=== PATIENT | male | born 1935 | race Caucasian/White ===

== ENCOUNTER 2017-06-07 08:58 | Outpatient (CLI) | payer MEDICARE ==
[2017-06-07] MEDS ORDERED: Iopamidol 370 76% 100 ML VIAL ONE (11:10)
--- NOTE | 2017-06-07 12:30 | CT ---
CT ABDOMEN AND PELVIS PERFORMED WITH CONTRAST ENHANCEMENT: HISTORY: Followup of prostate cancer. The patient has a history of bone metastases, not currently on chemothe rapy or radiation. COMPARISON: CT study from 09/09/2016 and bone scan from 09/09/2016. FINDINGS: ABDOMEN: The lung bases are clear. The liver, spleen, pancreas, and gallbladder regions all appear unremarkable. The right and left adrenal glands are normal in size and appearance. The right and left kidneys are normal in appearance. There is no significant periaortic or mesenteric adenopathy. PELVIS: There is no significant pelvic lymphadenopathy noted. The prostate is slightly enlarged, st able as compared to the prior exam. The small, subcentimeter, pelvic nodes noted on the previous exa mination appear essentially stable. The largest of these is one within the right internal iliac dominic n, measuring approximately 5 to 6 mm in short axis dimension. Extensive sclerotic bone metastases are stable. IMPRESSION: Stable overall examination. No significant periaortic or pelvic adenopathy. The small pelvic nodes and para-aortic nodes noted on the prior examination are unchanged in size. The bony changes are als o stable. POS: [facility]
--- NOTE | 2017-06-07 14:48 | NM ---
WHOLE BODY BONE SCAN: Date: 06/07/17 HISTORY: Prostate cancer with osseous metastasis. RADIOPHARMACEUTICAL: 31 mCi technetium-99m MDP injected intravenously. COMPARISON: 09/09/16. FINDINGS: Numerous foci of increased uptake are again seen in the skeleton. Some of these are new since the las t exam. Foci of increased uptake in the skull, left mandible, rib cage, spine, pelvis, bilateral cristobal ri and femurs. A small amount of tracer is seen in the urinary bladder. The kidneys are faintly visua lized. Increased uptake in the wrists and feet are consistent with degenerative changes. IMPRESSION: Widespread osseous metastatic disease with mild interval worsening since 09/09/16. POS: [facility]ASS[facility]
== END 2017-06-07 08:59 | disposition home or self-care (01) ==
LOC: CT 08:58
PROVIDERS: ATTEND Internal Medicine Medical Oncology
DX: C61 Malignant neoplasm of prostate (principal); C79.51 Secondary malignant neoplasm of bone; R11.2 Nausea with vomiting, unspecified
CPT/HCPCS: 74177; 78306; 82565; A9503; 36415

== ENCOUNTER 2017-09-08 12:44 | Outpatient (CLI) | payer MEDICARE | END 2017-09-08 12:45 | disposition home or self-care (01) | LOC: BICRAD 12:44 | PROVIDERS: ATTEND Internal Medicine Medical Oncology | DX: C61 Malignant neoplasm of prostate (principal); C79.51 Secondary malignant neoplasm of bone; R11.2 Nausea with vomiting, unspecified | CPT/HCPCS: 71046 ==

== ENCOUNTER 2017-09-23 07:24 | Outpatient (CLI) | payer MEDICARE ==
[2017-09-23] MEDS ORDERED: Iopamidol 370 76% 100 ML VIAL ONE (11:39)
--- NOTE | 2017-09-23 11:43 | CT ---
CT OF ABDOMEN AND PELVIS PERFORMED WITH INTRAVENOUS CONTRAST ENHANCEMENT: HISTORY: Prostate cancer with bone metastases. Evaluation for soft tissue metastasis. COMPARISON: A 06/07/17 study. FINDINGS: CT OF ABDOMEN PERFORMED WITH INTRAVENOUS CONTRAST ENHANCEMENT: The lung bases are clear. The liver, spleen, pancreas, and gallbladder regions are unremarkable. Right and left adrenal glands are normal in size. A lower pole left renal cyst is stable as is a aramis y subtle mid pole left renal cyst. There is no significant periaortic or mesenteric lymphadenopathy. CT OF PELVIS PERFORMED WITH INTRAVENOUS CONTRAST ENHANCEMENT: The small subcentimeter right-sided pelvic nodes are difficult to even appreciate on today's study. The 5-6 mm nodes seen along the right internal iliac chain is the largest node present. It is stable in size as compared to the prior examination measuring 6 mm in short axis dimension. OSSEOUS STRUCTURES: Diffuse sclerotic bone metastases are again noted. IMPRESSION: 1. Stable overall examination. 2. Stable appearance of small subcentimeter right-sided pelvic lymph nodes. 3. Diffuse sclerotic bone metastases unchanged. POS: [facility]
--- NOTE | 2017-09-23 12:47 | NM ---
BONE SCAN: HISTORY: Prostate cancer with bone metastases. COMPARISON: 06/07/2017 TECHNIQUE: Examination is performed using 21 millicuries of 99m technetium MDP, administered intravenously. FINDINGS: Whole body images, once again, show diffuse skeletal metastases. In comparison to the prior examinat ion, I do not appreciate that there is a significant interval change. Changes involve both the axial as well as the appendicular skeleton. The only area of questionable slight increase is in the dista l femoral shafts. IMPRESSION: Fairly stable overall examination. Diffuse skeletal metastatic disease again noted. The only area o f some questionable increased or new lesions is in the right and left distal femoral shafts, where up take is slightly more prominent than on the prior study. POS: [facility]
== END 2017-09-23 07:25 | disposition home or self-care (01) ==
LOC: NM 07:24
PROVIDERS: ATTEND Internal Medicine Medical Oncology
DX: C61 Malignant neoplasm of prostate (principal); C79.51 Secondary malignant neoplasm of bone
CPT/HCPCS: 74177; 78306; 82565; A9503

== ENCOUNTER 2018-06-07 08:52 | Outpatient (CLI) | payer MEDICARE ==
[2018-06-07] MEDS ORDERED: Iopamidol 370 76% 100 ML VIAL ONE (09:28)
--- NOTE | 2018-06-07 10:47 | CT ---
CT ABDOMEN AND PELVIS WITH CONTRAST: HISTORY: Prostate cancer with bone and lymph node metastasis. COMPARISON: CT abdomen and pelvis from 09/23/2017. FINDINGS: The lung bases are clear. No pericardial effusion. The gallbladder is unremarkable. The liver is unremarkable. The spleen is unremarkable. The adrena l glands are unremarkable. Inferior pole exophytic anterior cyst, left kidney, is unchanged. No hydronephrosis. No abnormal re nal enhancing mass. The aorta is nonaneurysmal. Extensive phleboliths in the pelvis. Mild diverticular disease in the s igmoid colon without active current inflammation. The appendix is visualized and is normal. Mild fluid signal within the fat in the deep pelvis, which could be sequela of post radiation changes. Unchanged size of the right internal iliac lymph nodes, which are not enlarged by size criteria, nor are they round, and they retain their normal reniform shape. Mild enthesopathic changes of both iliopsoas tendon insertions. Diffuse osseous sclerotic metastatic disease. No pathologic fracture. IMPRESSION: 1. Unchanged osseous metastatic disease. 2. No evidence for glenn disease progression within the abdomen or pelvis. 3. No acute intraabdominal abnormality. POS: [facility]
--- NOTE | 2018-06-07 14:46 | NM ---
NUCLEAR MEDICINE WHOLE BODY BONE SCAN: Comparison: 09-23-17 Clinical history: Malignant neoplasm of prostate with history of secondary malignant neoplasm of bone . Pharmaceutical: 32.8 mCi Technetium 99M MDP IV. FINDINGS: There is the appearance of a superscan with diffuse increased uptake throughout the skeletal structur es and nonvisualization of excreted activity within the kidneys. Diffuse increased activity is seen i nvolving the axial and appendicular skeleton as well as the calvarium. IMPRESSION: Superscan is demonstrated, compatible with widespread osseous metastatic disease. POS: [facility]ASSIMO
== END 2018-06-07 08:53 | disposition home or self-care (01) ==
LOC: CT 08:52
PROVIDERS: ATTEND Internal Medicine Medical Oncology
DX: C61 Malignant neoplasm of prostate (principal); C79.51 Secondary malignant neoplasm of bone; C77.9 Secondary and unspecified malignant neoplasm of lymph node, unspecified
CPT/HCPCS: 74177; 78306; 82565; A9503; 80053; 82248; 83615; 84100; 84153; 84550; Q9967

== ENCOUNTER 2018-12-13 12:37 | Outpatient (CLI) | payer MEDICARE ==
--- NOTE | 2018-12-13 12:58 | RAD ---
AP view of the pelvis INDICATION: History of prostate cancer COMPARISON: November 09, 2016 from prior radiology associates FINDINGS: Bones: Diffuse osseous metastatic disease appears stable. Vasectomy clips are seen within the region of the scrotum. Hips: Mild degenerative changes are stable. There is stable heterotopic ossification adjacent to the left hip. SI joints and symphysis pubis: Normal appearing. Intrapelvic contents: There are scattered phleboliths within the lower pelvis. IMPRESSION: Stable diffuse osseous metastatic disease.
== END 2018-12-13 12:38 | disposition home or self-care (01) ==
LOC: BICRAD 12:37
PROVIDERS: ATTEND Internal Medicine Medical Oncology
DX: C61 Malignant neoplasm of prostate (principal); C79.51 Secondary malignant neoplasm of bone; M25.552 Pain in left hip
CPT/HCPCS: 72170

== ENCOUNTER 2019-10-05 10:12 | Day surgery (SDC) | payer MEDICARE ==
[2019-10-05] MEDS ORDERED: diphenhydrAMINE 25 MG CAP PO SCH (10:30)
[2019-10-05] MEDS ORDERED: Acetaminophen 500 MG TAB PO SCH (10:30)
[2019-10-05] MEDS ORDERED: Sodium Chloride 0.9% 20 ML ONE (11:29)
[2019-10-05 16:14] VITALS: BP 152/65; TEMP 97.4
== END 2019-10-05 16:25 | disposition home or self-care (01) ==
LOC: ONC/OP 10:12
PROVIDERS: ATTEND Internal Medicine Medical Oncology
PROC: 30233N1 Transfusion of Nonautologous Red Blood Cells into Peripheral Vein, Percutaneous Approach (ICD-10-PCS; principal; 2019-10-05)
DX: D64.9 Anemia, unspecified (principal); C61 Malignant neoplasm of prostate
CPT/HCPCS: 36430; 86850; 86900; 86901; P9016; Q0163

== ENCOUNTER 2020-05-31 12:17 | Emergency (ER) | payer MEDICARE ==
[2020-05-31 15:14] LABS: Hemoglobin 6.6 g/dL (14.0-18.0); Mean Corpuscular HGB CONC 32.8 g/dL (32.0-36.0); Mean Corpuscular Hemoglobin 27.7 pg (27.0-31.0); Mean Corpuscular Volume 84.6 fL (78.0-98.0); Platelet Count 41 thou/uL (130-400); RBC Distribution Width 18.8 % (11.5-14.5); Red Blood Cell (RBC) Count 2.37 mill/uL (4.70-6.10)
[2020-05-31 15:20] LABS: INR-International Normal Ratio 1.3; PTT 26.4 sec (22.9-36.1); Prothrombin Time 16.7 sec (12.0-14.7)
[2020-05-31 15:24] LABS: Anisocytosis SLIGHT = 6-15 cells (100X) (0-5/hpf); Band 12 % (5-11); Lymphocytes 18 % (21-51); MDiff Complete? YES; Metamyelocyte 3 % (0-0); Monocytes 11 % (0-10); Myelocyte 1 % (0-0); Neutrophil 55 % (42-75); Nucleated RBC 8 % (0); Ovalocytes SLIGHT = 2-5 cells (100X) (0-1/hpf); Platelet Morphology Comment Appears Decreased; Polychromasia MODERATE = 3-4 cells (100X) (0-2/hpf); Schistocytes SLIGHT = 2-5 cells (100X) (0-1/hpf); Toxic Granulation SLIGHT; White Blood Cell (WBC) Count 9.1 thou/uL (4.8-10.8)
[2020-05-31 15:38] LABS: ALT (SGPT) 15 U/L (8-55); AST (SGOT) 63 U/L (5-34); Alkaline Phosphatase 1495 U/L (40-110); Anion Gap 17 mmol/L (10-20); BUN (Urea Nitrogen) 42 mg/dL (8.4-25.7); Bilirubin, Total 1.8 mg/dL (0.2-1.2); Calc. Creatinine Clearance 0 mL/min (70-130); Carbon Dioxide 18 mmol/L (23-31); Chloride 106 mmol/L (98-107); Globulin 1.7 g/dL (2.4-3.5); Glucose 127 mg/dL (83-110); Potassium 4.5 mmol/L (3.5-5.1); Protein, Total 5.7 g/dL (5.8-8.1); Sodium 136 mmol/L (136-145)
== END 2020-05-31 22:19 | disposition home or self-care (01) ==
LOC: ERS 12:17
DX: D64.9 Anemia, unspecified (principal); R06.00 Dyspnea, unspecified
CPT/HCPCS: 36430; 80053; 85025; 85610; 85730; 86850; 86900; 86901; 86920; 99285; P9016

== ENCOUNTER 2020-06-21 16:38 | Day surgery (SDC) | payer MEDICARE ==
[2020-06-21] MEDS ORDERED: diphenhydrAMINE 25 MG CAP PO SCH (17:30)
[2020-06-21] MEDS ORDERED: Acetaminophen 500 MG TAB PO SCH (17:30)
[2020-06-22 01:12] VITALS: BP 124/58; TEMP 98
[2020-06-22 02:20] LABS: #Eosinphils 0.1 thou/uL (0.0-0.7); #Monocytes 0.4 thou/uL (0.11-0.59); #Neutrophils 5.2 thou/uL (1.40-6.50); %Basophils 0.2 % (0.0-1.0); %Eosinophils 1.9 % (0.0-10.0); %Lymphocytes 14.9 % (21.0-51.0); %Neutrophils 77.1 % (42.0-75.0); Anisocytosis MODERATE=16-30 cells (100X) (0-5/hpf); Hemoglobin 9.1 g/dL (14.0-18.0); MDiff Complete? YES; Mean Corpuscular HGB CONC 34.3 g/dL (32.0-36.0); Mean Corpuscular Hemoglobin 32.6 pg (27.0-31.0); Mean Corpuscular Volume 95.1 fL (78.0-98.0); Mean Platelet Volume 8.6 fL (7.4-10.4); Platelet Count 46 thou/uL (130-400); Polychromasia SLIGHT = 2-3 cells (100X) (0-2/hpf); RBC Distribution Width 22.4 % (11.5-14.5); Red Blood Cell (RBC) Count 2.79 mill/uL (4.70-6.10); White Blood Cell (WBC) Count 6.8 thou/uL (4.8-10.8)
== END 2020-06-22 09:05 | disposition home or self-care (01) ==
LOC: SDC 16:38 → ONC 16:40 → SDC 06-22 09:05
PROVIDERS: ATTEND Internal Medicine Medical Oncology
PROC: 30233N1 Transfusion of Nonautologous Red Blood Cells into Peripheral Vein, Percutaneous Approach (ICD-10-PCS; principal; 2020-06-21)
DX: C61 Malignant neoplasm of prostate (principal); D63.0 Anemia in neoplastic disease
CPT/HCPCS: 36430; 85025; 86850; 86900; 86901; 86920; P9016; 36415; Q0163